=== PATIENT | male | born 1990 | race Caucasian/White ===

== ENCOUNTER 2016-06-07 16:08 | Emergency (ER) | payer BC ==
[2016-06-07 16:33] VITALS: BP 126/62
--- NOTE | 2016-06-07 16:41 | UC ---
Ear Complaint HPI - HPI Summary HPI Summary: patient was treated for otitis extrena 5 days ago, still having pain in the ear and drainage. Denies fever or cold symptoms - History of Current Complaint Chief Complaint: UCEar Stated Complaint: RIGHT EAR DRAINAGE Time Seen by Provider: 06/07/16 16:31 Hx Obtained From: Patient Onset/Duration: Sudden Onset, Lasting Days Severity Initially: Moderate Severity Currently: Moderate Pain Scale Used: 0-10 Numeric - Allergies/Home Medications Allergies/Adverse Reactions: Allergies Allergy/AdvReac Type Severity Reaction Status Date / Time Amoxicillin Allergy Hives Verified 06/07/16 16:29 Cefuroxime [From Ceftin] Allergy Hives Verified 06/07/16 16:29 Penicillins Allergy Hives Verified 06/07/16 16:29 Home Medications: Home Medications Ciproflox/Dexameth OTIC.SUSP* [Ciprodex Otic*] 1 drop .SEE ORDER BID 06/07/16 [ History Confirmed 06/07/16] PMH/Surg Hx/FS Hx/Imm Hx Previously Healthy: Yes Respiratory History Of: Reports: Asthma - Surgical History Surgical History: None - Family History Known Family History: Negative: Cardiac Disease, Hypertension - Social History Alcohol Use: Rare Substance Use Type: None Smoking Status (MU): Never Smoked Tobacco Review of Systems Constitutional: Negative Skin: Negative Eyes: Negative ENT: Ear Ache Respiratory: Negative Cardiovascular: Negative Gastrointestinal: Negative Genitourinary: Negative Motor: Negative Neurovascular: Negative Musculoskeletal: Negative Neurological: Negative Psychological: Negative All Other Systems Reviewed And Are Negative: Yes Physical Exam Triage Information Reviewed: Yes Appearance: Well-Appearing, Well-Nourished, Pain Distress Vital Signs: Initial Vital Signs Temp 98.7 F 06/07/16 16:24 Pulse 56 06/07/16 16:24 Resp 16 06/07/16 16:24 BP 126/62 06/07/16 16:24 Pulse Ox 100 06/07/16 16:24 Vital Signs Reviewed: Yes Eye Exam: Normal Eyes: Positive: Conjunctiva Clear ENT: Positive: TM red - right otitis externa, blood and white exudate noted Dental Exam: Normal Neck exam: Normal Neck: Positive: Supple, Nontender, No Lymphadenopathy Respiratory Exam: Normal Respiratory: Positive: Chest non-tender, Lungs clear, Normal breath sounds Cardiovascular Exam: Normal Cardiovascular: Positive: RRR, No Murmur, Pulses Normal Abdominal Exam: Normal Abdomen Description: Positive: Nontender, No Organomegaly, Soft Bowel Sounds: Positive: Present Musculoskeletal Exam: Normal Musculoskeletal: Positive: Strength Intact, ROM Intact, No Edema Neurological Exam: Normal Neurological: Positive: Alert, Muscle Tone Normal Psychological Exam: Normal Skin Exam: Normal Ear Complaint Course/Dx - Course Course Of Treatment: hx obtained, exam performed, meds prescribed and educated on use of ear drops - Differential Dx/Diagnosis Differential Diagnosis/HQI/PQRI: Cerumen Impaction, Otitis Externa, Otitis Media , URI Provider Diagnoses: otitis externa. tinnitus Discharge - Discharge Plan Condition: Stable Disposition: HOME Prescriptions: Ofloxacin 0.3% OTIC.RANJITH* [Floxin 0.3% OTIC.RANJITH*] 10 drop OTIC DAILY #1 btl Patient Education Materials: Otitis Externa (ED) Additional Instructions: use the med as directed. follow up as needed.
== END 2016-06-07 16:45 | disposition home or self-care (01) ==
LOC: UCCORT 16:08
DX: H60.91 Unspecified otitis externa, right ear (principal); H93.11 Tinnitus, right ear; Z88.0 Allergy status to penicillin; Z88.1 Allergy status to other antibiotic agents
CPT/HCPCS: 99202; G0463